=== PATIENT | female | born 1970 ===

== ENCOUNTER 2021-04-27 12:58 | Outpatient (REF) | payer SELFPAY ==
[2021-04-27 15:17] LABS: Binax Now Covid-19 Ag Negative (Negative)
[2021-04-27 15:18] LABS: Binax Internal Control QC Valid
== END 2021-04-27 12:59 | disposition home or self-care (01) ==
LOC: HO.LAB 12:58
PROVIDERS: Visit Provider Internal Medicine
DX: Z20.822 Contact with and (suspected) exposure to COVID-19 (principal)
CPT/HCPCS: C9803